=== PATIENT | female | born 1960 | race Caucasian/White ===

== ENCOUNTER → 2016-07-30 | Outpatient (CLI) | payer OTHER | LOC: FIMAGING 07:58 | PROVIDERS: ATTEND Radiology Diagnostic Radiology | DX: I87.2 Venous insufficiency (chronic) (peripheral) (principal) ==

== ENCOUNTER 2016-09-18 07:23 | Day surgery (SDC) | payer OTHER ==
[2016-09-18] MEDS ORDERED: ceFAZolin 2 GM/DEXTROSE 100 ML IV ONE (07:47)
[2016-09-18] MEDS ORDERED: ONDANSETRON 4 MG/2 ML VIAL IVP ONE (07:47)
[2016-09-18] MEDS ORDERED: NS 1,000 ML IV ONE (07:47)
[2016-09-18] MEDS ORDERED: LIDO/EPI 1% **for epidural** 30 ML SDV ONE ×2 (08:03→10:58)
[2016-09-18] MEDS ORDERED: MIDAZOLAM 2 MG/2 ML VIAL ONE ×3 (08:25→11:16)
[2016-09-18] MEDS ORDERED: fentaNYL 100 MCG/2 ML INJ ONE ×4 (08:26→10:31)
[2016-09-18] MEDS ORDERED: HYDROmorphONE/DILAUDID 2 MG/ML INJ ONE ×3 (10:35→11:28)
[2016-09-18] MEDS ORDERED: ONDANSETRON DISINTEGRATING 4 MG TAB PO PRN (12:37)
[2016-09-18] MEDS ORDERED: ONDANSETRON 4 MG/2 ML VIAL IVP PRN (12:37)
[2016-09-18] MEDS ORDERED: HYDROCODONE/APAP 5/325 TAB PO PRN (12:37)
[2016-09-18] MEDS ORDERED: IBUPROFEN 200 MG TAB PO ONE (13:00)
== END 2016-09-18 15:31 | disposition home or self-care (01) ==
LOC: FIMAGING 07:23
PROVIDERS: ATTEND Radiology Diagnostic Radiology
PROC: [UNRECOGNIZED PROCEDURE] (principal; 2016-09-18 12:05)
PROC: 06DY4ZZ Extraction of Lower Vein, Percutaneous Endoscopic Approach (ICD-10-PCS; principal; 2016-09-18 12:05)
PROC: [UNRECOGNIZED PROCEDURE] (principal; 2016-09-18 12:05)
DX: I83.891 Varicose veins of right lower extremity with other complications (principal); I87.2 Venous insufficiency (chronic) (peripheral)
CPT/HCPCS: J0690; J1170; J2250; J3010

== ENCOUNTER 2016-10-11 07:29 | Day surgery (SDC) | payer OTHER ==
[2016-10-11] MEDS ORDERED: SODIUM TETRADECYL SULFATE 60 MG/2 ML VIAL IV ONE (08:31)
[2016-10-11] MEDS ORDERED: LIDO/EPI 1% **for epidural** 30 ML SDV ONE (08:31)
[2016-10-11] MEDS ORDERED: IOPAMIDOL (ISOVUE-300) 100 ML BTL IV ONE (08:46)
[2016-10-11] MEDS ORDERED: fentaNYL 100 MCG/2 ML INJ ONE (09:02)
[2016-10-11] MEDS ORDERED: MIDAZOLAM 2 MG/2 ML VIAL ONE ×2 (09:03→10:02)
[2016-10-11] MEDS ORDERED: NITROGLYCERIN 2% 1 GM PACKET ONE (09:42)
[2016-10-11] MEDS ORDERED: HYDROmorphONE/DILAUDID 2 MG/ML INJ ONE ×2 (09:48→10:02)
[2016-10-11] MEDS ORDERED: HYDROCODONE/APAP 5/325 TAB ONE (11:29)
== END 2016-10-11 12:10 | disposition home or self-care (01) ==
LOC: FIMAGING 07:29
PROVIDERS: ATTEND Radiology Diagnostic Radiology
DX: I83.892 Varicose veins of left lower extremity with other complications (principal); I87.2 Venous insufficiency (chronic) (peripheral)
CPT/HCPCS: J1170; J2250; J3010; Q9967

== ENCOUNTER 2018-01-09 09:26 | Observation (INO) | payer OTHER ==
--- NOTE | 2018-01-09 09:48 | CPEKG ---
Heart Rate: 169 RR Interval: 355 QRSD Interval: 78 QT Interval: 268 QTC Interval: 450 QRS [place]: 20 T Wave [place]: -35 EKG Severity - ABNORMAL ECG - EKG Impression: ATRIAL FIBRILLATION WITH RAPID V-RATE EKG Impression: REPOLARIZATION ABNORMALITY, PROB RATE RELATED Electronically Signed By: Cal Estevez 09-Jan-2018 14:15:59
[2018-01-09] MEDS ORDERED: ADENOSINE 6 MG/2 ML VIAL ONE (09:56)
[2018-01-09] MEDS ORDERED: DILTIAZEM 25 MG/5 ML VIAL IVP ONE (10:02)
[2018-01-09] MEDS ORDERED: DILTIAZEM 125 MG in D5W 125 ML IV ONE (10:02)
[2018-01-09 10:11] LABS: PLATELET COUNT 316 10^3/uL (150-400)
--- NOTE | 2018-01-09 11:24 | EDPHY ---
H & P Time Seen by Provider: 01/09/18 09:44 HPI/ROS: Chief complaint. Palpitations HPI. Patient 57-year-old female presents with complaint of palpitations. She had a roll thing section yesterday and she says that they worked on her circulation and her vagal nerve. She woke up in the middle the night with palpitations that have continued. She notes increased stress. She has had palpitations before but no sustained palpitations. She has no chest pain or shortness of breath. She feels generally weak. ROS Constitutional. no fever/chills, weakness Eyes. no problems with vision ENT. no sore throat, no nasal drainage Cardiovascular. Palpitations Respiratory. no shortness of breath, no cough Abdominal. no abdominal pain, no nausea/vomiting, no diarrhea . no problems urinating MS. no calf pain/swelling, no neck/back pain, no joint pain Skin. no rash Lymph. no swollen glands Neuro. no headache, no dizziness, no difficulty walking or with speech Past Medical/Surgical History: Hypothyroid, Lyme disease Social History: Single, nonsmoker, no alcohol Smoking Status: Never smoked Physical Exam: General Appearance: Alert pleasant well-developed female moderate distress vital signs initially show heart rate 142 with blood pressure 161/107 Eyes: Pupils equal and round no pallor or injection. ENT, Mouth: Mucous membranes are moist. Respiratory: There are no retractions, lungs are clear to auscultation. Cardiovascular: Irregularly irregular rate and rhythm with tachycardia Gastrointestinal: Abdomen is soft and nontender, no masses, bowel sounds normal. Neurological: Awake and alert, sensory and motor exams grossly normal. Skin: Warm and dry, no rashes. Musculoskeletal: Neck is supple nontender. Extremities symmetrical, full range of motion. Psychiatric: Patient is oriented X 3, there is no agitation. Constitutional: Initial Vital Signs Temperature (C) 36.6 C 01/09/18 09:28 Heart Rate 142 H 01/09/18 09:28 Respiratory Rate 18 01/09/18 09:28 Blood Pressure 161/107 H 01/09/18 09:28 O2 Sat (%) 96 01/09/18 09:28 O2 Delivery Mode Room Air Allergies/Adverse Reactions: No Known Allergies Allergy (Verified 01/09/18 09:26) Home Medications: Medication Instructions Recorded Thyroid [[place] Thyroid 60 MG (*)] 120 mg PO DAILY10 09/16/16 Cmpnd T3/T4 Tab 1 each PO DAILY 01/09/18 Estradiol [Vivelle-Dot 0.05MG (*)] 0.05 mg TD SuWe@0800 01/09/18 Herbals/Supplements -Info Only 1 ea PO DAILY 01/09/18 oxyCODONE HCL/ACETAMINOPHEN 1 each PO DAILY PRN 01/09/18 [Percocet 10-325 mg Tablet] Medical Decision Making - Diagnostics EKG Interpretation: EKG interpreted by me shows rapid atrial fibrillation. Normal axis. QRS is normal there is no significant ST elevation or depression. Ventricular response is 169 Procedures: IV normal saline. Diltiazem 20 mg bolus followed by drip. ED Course/Re-evaluation: Re-evaluation at 11:15 a.m.. Heart rate 138 with blood pressure 174/99. Patient given Eliquis in the emergency department for the atrial fibrillation prevention clots We are titrating up the diltiazem drip for better rate control Patient and I discussed laboratory and EKG evaluation. We discussed treatment including recommendation admission. She expresses understanding and agreement I consulted discussed case with Dr. Mcrae, hospitalist who agrees to the admission I consulted discussed case with Cardiology who will see the patient in consultation Differential Diagnosis: New onset atrial fibrillation with rapid ventricular response. No evidence for acute MD. Rolfing session yesterday involving vagal nerve and circulation though I am not quite sure that this has related causes for her new onset atrial fibrillation. - Data Points Laboratory Results: Laboratory Results 01/09/18 09:52 01/09/18 09:52 01/09/18 01/09/18 01/09/18 09:58 09:52 09:52 WBC RBC Hgb Hct MCV MCH MCHC RDW Plt Count MPV Neut % (Auto) Lymph % (Auto) [place] % (Auto) Eos % (Auto) Baso % (Auto) Nucleat RBC Rel Count Absolute Neuts (auto) Absolute Lymphs (auto) Absolute Monos (auto) Absolute Eos (auto) Absolute Basos (auto) Absolute Nucleated RBC Immature Gran % Immature Gran # Sodium 138 mEq/L mEq/L (135-145) Potassium 4.4 mEq/L mEq/L (3.3-5.0) Chloride 105 mEq/L mEq/L (97-110) Carbon Dioxide 23 mEq/l mEq/l (22-31) Anion Gap 10 mEq/L mEq/L (8-16) BUN 16 mg/dL mg/dL (7-23) Creatinine 0.8 mg/dL mg/dL (0.6-1.0) Estimated GFR > 60 Glucose 125 mg/dL H mg/dL (70-100) Calcium 9.6 mg/dL mg/dL (8.5-10.4) Magnesium 2.0 mg/dL mg/dL (1.6-2.3) POC Troponin I 0.00 ng/mL ng/mL (0.00-0.08) NT-Pro-B Natriuret Pep 528 pg/mL H pg/mL (0-125) TSH Pending 01/09/18 09:52 WBC 8.46 10^3/uL 10^3/uL (3.80-9.50) RBC 4.92 10^6/uL 10^6/uL (4.18-5.33) Hgb 15.1 g/dL g/dL (12.6-16.3) Hct 45.0 % % (38.0-47.0) MCV 91.5 fL fL (81.5-99.8) MCH 30.7 pg pg (27.9-34.1) MCHC 33.6 g/dL g/dL (32.4-36.7) RDW 12.2 % % (11.5-15.2) Plt Count 316 10^3/uL 10^3/uL (150-400) MPV 9.5 fL fL (8.7-11.7) Neut % (Auto) 58.2 % % (39.3-74.2) Lymph % (Auto) 33.1 % % (15.0-45.0) [place] % (Auto) 7.3 % % (4.5-13.0) Eos % (Auto) 0.8 % % (0.6-7.6) Baso % (Auto) 0.5 % % (0.3-1.7) Nucleat RBC Rel Count 0.0 % % (0.0-0.2) Absolute Neuts (auto) 4.92 10^3/uL 10^3/uL (1.70-6.50) Absolute Lymphs (auto) 2.80 10^3/uL 10^3/uL (1.00-3.00) Absolute Monos (auto) 0.62 10^3/uL 10^3/uL (0.30-0.80) Absolute Eos (auto) 0.07 10^3/uL 10^3/uL (0.03-0.40) Absolute Basos (auto) 0.04 10^3/uL 10^3/uL (0.02-0.10) Absolute Nucleated RBC 0.00 10^3/uL 10^3/uL (0-0.01) Immature Gran % 0.1 % % (0.0-1.1) Immature Gran # 0.01 10^3/uL 10^3/uL (0.00-0.10) Sodium Potassium Chloride Carbon Dioxide Anion Gap BUN Creatinine Estimated GFR Glucose Calcium Magnesium POC Troponin I NT-Pro-B Natriuret Pep TSH Medications Given: Discontinued Medications Apixaban (Eliquis) 5 mg PO BID [facility] Stop: 07/08/18 11:44 Last Admin: 01/09/18 12:40 Dose: 5 mg Diltiazem HCl (Cardizem 25 Mg/5 Ml Vial) 20 mg IVP EDNOW ONE Stop: 01/09/18 10:03 Last Admin: 01/09/18 10:22 Dose: 20 mg Diltiazem HCl 125 mg/ Dextrose 125 mls @ 0 mls/hr IV EDNOW ONE; As Directed PRN Reason: Protocol Stop: 01/09/18 10:03 Last Admin: 01/09/18 10:36 Dose: 125 mls Point of Care Test Results: Chemistry 01/09/18 09:58 POC Troponin I 0.00 ng/mL ng/mL (0.00-0.08) Departure - Departure Dis[facility]: [facility] Acute Clinical Impression: Atrial fibrillation Qualifiers: Atrial fibrillation type: unspecified Qualified Code(s): I48.91 - Unspecified atrial fibrillation Condition: Fair
[2018-01-09] MEDS ORDERED: APIXABAN 5 MG TAB PO SCH (11:45)
[2018-01-09] MEDS ORDERED: ONDANSETRON 4 MG/2 ML VIAL IVP PRN (12:51)
[2018-01-09] MEDS ORDERED: ONDANSETRON DISINTEGRATING 4 MG TAB PO PRN (12:51)
[2018-01-09] MEDS ORDERED: ACETAMINOPHEN 325 MG TAB PO PRN (12:51)
[2018-01-09] MEDS ORDERED: DILTIAZEM 125 MG in D5W 125 ML IV SCH (13:00)
--- NOTE | 2018-01-09 13:04 | PDGENHP ---
History and Physical - Chief Complaint palpitations - History of Present Illness Ms Marroquin is a pleasant 57yo F with a history of hypothyroidism who presents with palpitations that woke her up from sleep around 2am this morning. These were associated with lightheadedness, dizziness and mild shortness of breath but no chest pain or syncope. She was able to fall back asleep but when she woke up again this morning her symptoms persisted which prompted her to come to the ED. Has infrequently had palpitations that lasted <5 seconds in the past but nothing sustained. She reports having soft tissue manipulation (called Rolfing) for the first time yesterday. She reports her vagal nerve was manipulated. Otherwise, she denies fevers or any other infectious symptoms. No recent medication changes and has been on same dose of thyroid replacement. In the ED, she was found to have HR in the 170s with stable BP. Her ECG demonstrated atrial fibrillation. She was given 20mg IV diltiazem, started on a diltiazem gtt and given 1 dose of apixaban prior to admission for further management. History Information - Allergies/Home Medication List Allergies/Adverse Reactions: No Known Allergies Allergy (Verified 01/09/18 09:26) Home Medications: Thyroid [[place] Thyroid 60 MG (*)] 120 mg PO DAILY10 09/16/16 [Last Taken ] Cmpnd T3/T4 Tab 1 each PO DAILY 01/09/18 [Last Taken 01/09/18] Estradiol [Vivelle-Dot 0.05MG (*)] 0.05 mg TD SuWe@0800 01/09/18 [Last Taken ] Herbals/Supplements -Info Only 1 ea PO DAILY 01/09/18 [Last Taken Unknown] oxyCODONE HCL/ACETAMINOPHEN [Percocet 10-325 mg Tablet] 1 each PO DAILY PRN [Last Taken Unknown] I have personally reviewed and updated: family history, medical history, social history, surgical history - Past Medical History Additional medical history: hypothyroidism, Lyme disease - Surgical History Additional surgical history: sclerotherapy/laser ablation of varicose veins in legs - Family History Positive for: hypertension (mother and father). Negative for: CAD Additional family history: father: mitral stenosis 2/2 rheumatic disease complicated by atrial fibrillation - Social History Smoking Status: Never smoked Alcohol Use: Occasionally Drug Use: None Review of Systems Review of Systems: ROS: 10pt was reviewed & negative except for what was stated in HPI & below Constitutional: Reports: chills, diaphoresis, fever, weight loss EENMT: Reports: blurred vision Cardiac: Reports: irregular heart rate, lightheadedness, palpitations. Denies: chest pain, edema, syncope Respiratory: Reports: shortness of breath. Denies: cough, orthopnea Gastrointestinal: Denies: vomitting, diarrhea, nausea Genitourinary: Denies: dysuria, frequency, hematuria Muscolosketal: Denies: back pain, joint pain, joint swelling Skin: Denies: lesions, rash Neurological: Denies: anxiety, headache, numbness Hematologic/Lymphatic: Denies: easy bleeding Physical Exam Physical Exam: Temp Pulse Resp BP Pulse Ox 36.6 C 126 H 20 169/131 H 95 01/09/18 09:28 01/09/18 10:54 01/09/18 10:54 01/09/18 10:54 01/09/18 10:54 Constitutional: no apparent distress, not in pain Eyes: PERRL, anicteric sclera, EOMI Ears, Nose, Mouth, Throat: moist mucous membranes, hearing normal, ears appear normal, no oral mucosal ulcers Cardiovascular: irregularly irregular, pulses symmetric bilaterally, tachycardia , No no murmur, rub, or gallop, No JVD, No edema Respiratory: no respiratory distress, no rales or rhonchi, clear to auscultation Gastrointestinal: normoactive bowel sounds, soft, non-tender abdomen, tenderness Skin: warm, no rashes or abrasions Musculoskeletal: full muscle strength, no muscle tenderness, normal joint ROM, no joint effusions Neurologic: AAOx3, sensation intact bilaterally, CN II-XII Intact, No weakness, No numbness Psychiatric: interacting appropriately, not anxious, not encephalopathic, thought process linear Lab Data & Imaging Review 01/09/18 09:52 01/09/18 09:52 WBC 8.46 10^3/uL (3.80-9.50) 01/09/18 09:52 RBC 4.92 10^6/uL (4.18-5.33) 01/09/18 09:52 Hgb 15.1 g/dL (12.6-16.3) 01/09/18 09:52 Hct 45.0 % (38.0-47.0) 01/09/18 09:52 MCV 91.5 fL (81.5-99.8) 01/09/18 09:52 MCH 30.7 pg (27.9-34.1) 01/09/18 09:52 MCHC 33.6 g/dL (32.4-36.7) 01/09/18 09:52 RDW 12.2 % (11.5-15.2) 01/09/18 09:52 Plt Count 316 10^3/uL (150-400) 01/09/18 09:52 MPV 9.5 fL (8.7-11.7) 01/09/18 09:52 Neut % (Auto) 58.2 % (39.3-74.2) 01/09/18 09:52 Lymph % (Auto) 33.1 % (15.0-45.0) 01/09/18 09:52 [place] % (Auto) 7.3 % (4.5-13.0) 01/09/18 09:52 Eos % (Auto) 0.8 % (0.6-7.6) 01/09/18 09:52 Baso % (Auto) 0.5 % (0.3-1.7) 01/09/18 09:52 Nucleat RBC Rel Count 0.0 % (0.0-0.2) 01/09/18 09:52 Absolute Neuts (auto) 4.92 10^3/uL (1.70-6.50) 01/09/18 09:52 Absolute Lymphs (auto) 2.80 10^3/uL (1.00-3.00) 01/09/18 09:52 Absolute Monos (auto) 0.62 10^3/uL (0.30-0.80) 01/09/18 09:52 Absolute Eos (auto) 0.07 10^3/uL (0.03-0.40) 01/09/18 09:52 Absolute Basos (auto) 0.04 10^3/uL (0.02-0.10) 01/09/18 09:52 Absolute Nucleated RBC 0.00 10^3/uL (0-0.01) 01/09/18 09:52 Immature Gran % 0.1 % (0.0-1.1) 01/09/18 09:52 Immature Gran # 0.01 10^3/uL (0.00-0.10) 01/09/18 09:52 Sodium 138 mEq/L (135-145) 01/09/18 09:52 Potassium 4.4 mEq/L (3.3-5.0) 01/09/18 09:52 Chloride 105 mEq/L (97-110) 01/09/18 09:52 Carbon Dioxide 23 mEq/l (22-31) 01/09/18 09:52 Anion Gap 10 mEq/L (8-16) 01/09/18 09:52 BUN 16 mg/dL (7-23) 01/09/18 09:52 Creatinine 0.8 mg/dL (0.6-1.0) 01/09/18 09:52 Estimated GFR > 60 01/09/18 09:52 Glucose 125 mg/dL (70-100) H 01/09/18 09:52 Calcium 9.6 mg/dL (8.5-10.4) 01/09/18 09:52 POC Troponin I 0.00 ng/mL (0.00-0.08) 01/09/18 09:58 Visualized and Interpreted EKG results: Yes EKG additional interpertation: atrial fibrillation with rapid ventricular response (HR 160s), no ischemic changes, no pre-excitation Assessment & Plan Plan: Ms Marroquin is a 57yo F with a history of hypothyroidism who presents with several hours of palpitations found to be in atrial fibrillation. 1. Atrial fibrillation with rapid ventricular response: New diagnosis requiring further work up. Hemodynamically stable. Cardiology has been consulted. She is euvolemic with no symptoms/signs of coronary ischemia or heart failure. - Check BNP, TSH, electrolytes - TTE - Diltiazem gtt - Start metoprolol tartrate 25mg PO BID - Started on oral anticoagulation with apixaban 5mg BID in ED, will continue - Given symptoms started <48 hours ago, will keep NPO at midnight for possible electrical cardioversion in AM however wouldn't be surprised if spontaneously converts in the mean time 2. Hypothyroidism: Does not appear overtly hypo/hyperthyroid on exam. Checking thyroid parameters and continuing home medications for now. VTE ppx: She is on therapeutic anticoagulation. Diet: regular then NPO at midnight Code status: She is full code. Disposition: She requires admission for observation for management of atrial fibrillation with RVR with possible need for cardioversion.
[2018-01-09] MEDS ORDERED: DILTIAZEM HCL/D5W 125 ML IV SCH (13:30)
[2018-01-09] MEDS: METOPROLOL TARTRATE 25 MG TAB PO SCH ×2 (14:32→21:25)
--- NOTE | 2018-01-09 14:55 | GCON ---
[f rep st] CONSULTATION CARDIOLOGY CONSULTATION. DATE OF CONSULTATION: 01/09/2018 REASON FOR CONSULTATION: We were asked by Dr. Gage to evaluate Ms. Marroquin for atrial fibrillation with rapid ventricular rates. HPI: The patient is a 57-year-old female with a history of hypothyroidism and borderline elevated blood pressures, who reports being awoken from her sleep at 2:00 a.m. with palpitations. She noted a fluttering sensation in her chest with associated lightheadedness, hypotension, and diaphoresis. She checked her pulse and her heart rate was elevated into the 150s. In regard to her recent health, she denies any symptoms of chest pain, fever, cough. She feels like she may have had other episodes of palpitations in the past but they are all very short lived, nothing similar to this. Of note, she did have a Rolfing session in which her vagal nerve was manipulated. When she awoke at 2 AM, she noted a sore throat sensation which she attributes to the manipulation. Today, she presented to the emergency department, and was found to be in atrial fibrillation with rapid ventricular rates and an elevated blood pressure. She is now admitted for rate and rhythm control. Currently, she is lying comfortably. She denies any further sore throat sensation. Home medications include [place] Thyroid compounded T3, T4, estradiol, herbal supplements, oxycodone. FAMILY HISTORY: Family history of hypertension. Father had rheumatic heart disease and atrial fibrillation due to mitral stenosis. Mother is currently in hospice for dementia. PAST MEDICAL HISTORY: Hypothyroidism, borderline high blood pressures, Bartonella. PAST SURGICAL HISTORY: Sclerotherapy and vein ablation for varicose veins. SOCIAL HISTORY: She is a nonsmoker. She reports 4 ounces of sake nightly. REVIEW OF SYSTEMS: As per HPI. A complete 10-point review of systems was obtained and is negative except for what is dictated in HPI. PHYSICAL EXAMINATION: VITAL SIGNS: BP of 169/131, heart rate of 126, respirations 20, O2 saturation 95% on room air. GENERAL: She is a very pleasant female in no apparent distress. HEENT: Normocephalic, atraumatic with no scleral icterus noted. Mucous membranes moist. HEART: Irregularly irregular. No rubs or gallops. LUNGS: Clear to auscultation. ABDOMEN: Soft with normoactive bowel sounds. SKIN: Warm and dry without edema. PSYCH: Normal mood and affect for given situation. NEURO: No focal deficits detected. : No Zamora present. LABORATORY DATA: CBC with WBC 8.46, hemoglobin 15.1, hematocrit 45, platelet count 316. BMP with sodium 138, potassium 4.4, chloride 105, CO2 23, BUN 16, creatinine 0.8, glucose 125, magnesium 2. Troponin 0. NT proBNP of 528. TSH of less than 0.015. 12-lead ECG personally interpreted demonstrates atrial fibrillation with rapid ventricular rates at 170. Telemetry reviewed and the heart rate varies between 100 and 130. I spoke with Dr. Gage regarding patient's care. IMPRESSION & PLAN: The patient is a 57-year-old female who presents with new onset atrial fibrillation. 1. Atrial fibrillation. This is a new diagnosis and requires further workup and treatment. We reviewed multiple options including proceeding to JUAN F-guided cardioversion today versus rate control that may result in spontaneous conversion. She would like to opt for the latter option. We will plan to proceed tomorrow if she does not spontaneously convert. Her echo is pending. Possible triggers for atrial fibrillation reviewed, including hyperthyroidism which may require adjustment of her thyroid medication dosing. [id number] of 2 , which typically warrants ongoing anticoagulation. This can be addressed in the outpatient as she was highly symptomatic with erh afib. 2. Hypothyroidism. As above. Consider outpatient adjustment versus decreasing in dosing prior to discharge. 3. Elevated blood pressures. She reports no formal diagnosis of hypertension. We reviewed that controlled BP would likely help prevent future bouts of AF. She may need to consider starting antihypertensive therapy in this admission. We will follow blood pressure for now. /[id number]/MODL MTDD
--- NOTE | 2018-01-09 15:04 | ECHO ---
[email or web address] [address] Main: [phone] Fax: [email or web address] Echocardiogram Name: JOHN MARTINEZ MR#: [id number] Study Date: 01/09/2018 Study Time: 01:59 PM Date of : 1960 Age: 57 year(s) Height: 172.7 cm (68 in.) Weight: 73.94 kg (163 lb.) BSA: 1.87 m2 Gender: Female Examination: Echo Indication: New onset of A-fib Image Quality: Contrast: Requested by: Silvestre Gage BP: 136 mmHg/95 mmHg Heart Rate: Rhythm: Indication: New onset of A-fib Procedure Staff Locksmith Helper: Oc Scott RDCS Reading Physician: Henrique Valle MD Requesting Provider: Conclusions: Normal size left ventricle. EF is 62 %. No regional wall motion abnormality. The rhythm is atrial fibrillation. The patient converted during the echocardiogram exam.. Trivial mitral valve regurgitation. The aortic valve is normal in appearance and function. The tricuspid valve is normal in appearance and function. No pericardial effusion. Measurements: Chambers Valvular Assessment AV/MV Valvular Assessment TV/PV Normal Normal Normal Name Value Range Name Value Range Name Value Range Ao Fawn (MM): 2.8 cm (2.2 cm-3.7 AV Vmax: 1.37 m/s (1 m/s-1.7 TR Vmax: 2.36 mm/s ( - ) cm) m/s) TR PGmax: 22 mmHg ( - ) IVSd (2D): 1.0 cm (0.6 cm-1.1 AV maxP mmHg ( - ) syst. PAP: 27 mmHg ( - ) cm) LVOT Vmax: 0.98 m/s (0.7 m/s-1.1 PV Vmax: 1.17 m/s (0.6 m/s-0.9 LVDd (2D): 4.1 cm (3.9 cm-5.3 m/s) m/s) cm) MV E Vmax: 0.98 m/s ( - ) PV PGmax: 5 mmHg ( - ) LVDs (2D): 2.7 cm (2.1 cm-4 MV A Vmax: 0.47 m/s ( - ) cm) MV E/A: 2.09 ( - ) LVPWd (2D): 1.0 cm ( - ) LVEF (2D): 62 (>=54 %) Continued Measurements: Chambers Valvular Assessment AV/MV Valvular Assessment TV/PV Name Value Name Value Name Value LADs Lon.9 cm MV E' Septal: 0.15 m/s CVP (est.): 5 mmHg Patient: JOHN MARTINEZ Study Date: 01/09/2018 Page 1 of 2 01:59 PM LA Area: 13.3 cm2 MV E/E' Septal: 6.50 MV E/E' Lateral: 5.50 Findings: Left Ventricle: Normal size left ventricle. No LV hypertrophy. Normal global systolic LV function. EF is 62 %. No regional wall motion abnormality. Normal diastolic LV function. The rhythm is atrial fibrillation. The patient converted during the echocardiogram exam.. Right Ventricle: Normal size right ventricle. Normal RV function. Left Atrium: The left atrium is normal in size. Right Atrium: The right atrium is normal in size. Mitral Valve: The mitral valve is normal in appearance and function. Trivial mitral valve regurgitation. Aortic Valve: The aortic valve is tri-leaflet. The aortic valve is normal in appearance and function. Tricuspid Valve: The tricuspid valve is normal in appearance and function. Pulmonic Valve: The pulmonic valve is normal in appearance and function. Aorta: The aorta is normal. Pericardium: No pericardial effusion. Exam Comments: The patient cardioverted during the echocardiogram. Now NSR.. (No Signature Object) Patient: JOHN MARTINEZ Study Date: 01/09/2018 Page 2 of 2 01:59 PM [id number]
[2018-01-09 16:19] LABS: INR 1.17 (0.83-1.16); PROTIME(PATIENT) 15.1 SEC (12.0-15.0)
--- NOTE | 2018-01-09 16:19 | CPEKG ---
Heart Rate: 61 RR Interval: 984 P-R Interval: 168 QRSD Interval: 80 QT Interval: 404 QTC Interval: 407 P [place]: 56 QRS [place]: 63 T Wave [place]: 79 EKG Severity - NORMAL ECG - EKG Impression: SINUS RHYTHM Electronically Signed By: Pilo Boyce 10-Jan-2018 10:20:36
[2018-01-09] MEDS: APIXABAN 5 MG TAB PO SCH (21:25)
[2018-01-10 03:53] LABS: INR 1.19 (0.83-1.16); PROTIME(PATIENT) 15.3 SEC (12.0-15.0)
[2018-01-10] MEDS ORDERED: NS 1,000 ML IV ONE (06:00)
[2018-01-10] MEDS ORDERED: ATROPINE SULFATE 1 MG/10 ML SYR IVP ONE (06:00)
[2018-01-10 08:33] VITALS: BP 154/96
[2018-01-10] MEDS: METOPROLOL TARTRATE 25 MG TAB PO SCH (08:33)
[2018-01-10] MEDS ORDERED: [UNRECOGNIZED DRUG - MIXTURE] PO SCH (09:00)
[2018-01-10] MEDS ORDERED: ASPIRIN EC 81 MG TAB PO SCH (09:45)
[2018-01-10] MEDS ORDERED: LISINOPRIL 10 MG TAB PO SCH (09:45)
--- NOTE | 2018-01-10 09:54 | PDCARPN ---
Cardiology Progress Note Chief Complaint: PAF Assessment/Plan: Assessment: 57F PMH borderline htn, hypoT, admitted with palps and found to be in AF RVR. Spontaneous conversion yesterday. #. PAF: [id number] of 2 which typically warrants full AC pt was highly symptomatic with AF and so will defer AC and start ASA therapy pt counseled on BP and lifestyle modifications (stress reduction) #. htn: BP remains elevated start Lisinopril BMP in 1 week and clinical follow up #. hypoT: TSH undetectable which may be playing a role in AF will have IM address 15 minutes wiht 50% spent on counseling 01/10/18 09:51 Subjective: Feels well and feels better when BP was lower. No cp or palps. Reviewed/Discussed With: hospitalist (Dr. Gage) Objective: Vital Signs (8 Hrs) Temp Pulse Resp BP Pulse Ox 01/10/18 08:33 72 154/96 H 01/10/18 08:00 97.9 F 65 14 154/96 H 94 01/10/18 03:51 98.1 F 65 16 151/92 H 95 Intake/Output (24 Hrs) 01/09/18 01/10/18 01/11/18 05:59 05:59 05:59 Intake Total 400 Balance 400 Intake: Oral (ml) 400 Other: Weight 79.8 kg Intake Quantity Yes Sufficient Number of Voids Toilet 2 Result Diagrams: 01/09/18 09:52 01/10/18 03:33 EKG: personally interpreted NSR Telemetry: SR overnight short run of PAT Echocardiogram: EF wnl and no VHD - Physical Exam Constitutional: healthy appearing, no apparent distress Eyes: anicteric sclera Ears, Nose, Mouth, Throat: moist mucous membranes Respiratory: clear to auscultate bilat, no crackles Gastrointestinal: normoactive bowel sounds Skin: no edema Neurologic: AAOx3 Psychiatric: cooperative, interactive ICD10 Worksheet Patient Problems: Problems Problem Status Onset Atrial fibrillation Acute
[2018-01-10] MEDS ORDERED: THYROID 60 MG TAB PO SCH (10:00)
--- NOTE | 2018-01-10 10:21 | ASDISCHSUM ---
Discharge Information Plan Status:Home with No Needs Medically Cleared to Leave:01/10/2018 Discharge Date:01/10/2018 CM D/C Disposition:Home, Routine, Self-Care ADT D/C Disposition:Home, Routine, Self-Care Projected Discharge Date:01/10/2018 Transportation at D/C: Discharge Delay Reason: Follow-Up Date:01/10/2018 Discharge Slot: Final Diagnosis: Placement Information Patient Contact Information Contact Name:INOCENCIO Relationship: Address:[address] [place] [address] Work Phone: City:[facility] Phone: State/Zip Code:[place] [address] Email: Financial Information Financial Class:HMO and PPO Plans Primary Plan Desc:[facility] Primary Plan Number:[id number] Secondary Plan Desc: Secondary Plan Number: Assessment Information Intervention Information Intervention Type:*Incorrect Registration Date of Service:01/09/2018 06:25 PM Patient Type:Observation Staff Member:ZOË Burciaga Patricia Hours: Discipline: Severity: Comment:
--- NOTE | 2018-01-10 10:29 | ASMTLACE ---
LACE Length of stay for Answers: Less than 1 day current admission Acuity / Level of Answers: No Care: Did the patient have an inpatient admission? Comorbidities - select Answers: Other Notes: afib, HTN all that apply # of Emergency department Answers: 1-2 visits in the last 6 months Score: 2 Date Signed: 01/10/2018 10:28 AM Electronically Signed By:Fabiola Barber RN
--- NOTE | 2018-01-10 10:33 | ASMTCMCOM ---
CM Note CM Note Notes: Chart reviewed. Patient is a 57 year old female admitted via ED for rapid afib that converted spontaneously. She has been medically cleared for discharge, no needs identified. CM available should needs arise. Plan: Home independently Date Signed: 01/10/2018 10:32 AM Electronically Signed By:Fabiola Barber RN
[2018-01-10] MEDS: APIXABAN 5 MG TAB PO SCH (11:29)
--- NOTE | 2018-01-10 20:07 | PDDCSUM ---
Discharge Summary Discharge Summary: Date of Admission: 01/09/2018 Date of Discharge: 01/10/2018 Consultations: cardiology Procedures/Studies: TTE Hospital Course by Diagnosis: 1. Atrial fibrillation with RVR: New diagnosis. Suspect precipitated by hyperthyroidism and HTN. Spontaneously converted while inpatient. Discharged on metoprolol 50mg BID and aspirin 81mg daily ([id number]). Patient to f/u with cardiology to discuss 30 day event monitor and long-term anticoagulation. 2. Hypothyroidism: Suspect taking too much thyroid replacement as undetectable TSH with normal free T4. She has been taking unknown amounts of T3/T4 compound as well as 120mcg armour thyroid. We started her on weight-based levothyroxine at 88mcg/day and discontinued her other meds. She should follow up with her PCP and get TSH checked in 4-6 weeks. 3. Hypertension: New diagnosis for patient. Started on metoprolol and lisinopril. Items for Follow Up: 1. Follow up with cardiology for management of afib 2. Check TSH in 4-6 weeks and adjust levothyroxine accordingly 3. Titrate anti-hypertensives as needed Pending Items at Discharge: None Medications at Discharge: metoprolol tartrate 25mg BID, lisinopril 10mg daily, levothyroxine 88mcg daily, aspirin 81mg daily
== END 2018-01-10 12:16 | disposition home or self-care (01) ==
LOC: INTOOBSV 11:43 → F2W 13:20
PROVIDERS: ADMIT Hospitalist; ATTEND Hospitalist
DX: I48.91 Unspecified atrial fibrillation (principal); E03.9 Hypothyroidism, unspecified; I10 Essential (primary) hypertension
CPT/HCPCS: 93005; 93306; 96365; 96366; 96375; 99285; G0378; 84484-PO; J0153

== ENCOUNTER 2018-09-29 12:08 | Observation (INO) | payer SELFPAY ==
[2018-09-29] MEDS ORDERED: NS 1,000 ML IV ONE (12:30)
--- NOTE | 2018-09-29 12:30 | EDPHY ---
H & P Stated Complaint: tachycardia hx afib Time Seen by Provider: 09/29/18 12:30 HPI/ROS: HPI CHIEF COMPLAINT: AFib with RVR. HISTORY OF PRESENT ILLNESS: This patient is a 58-year-old female, she has a history of hypertension, and AFib remotely, she presents emergency room with AFib with RVR. She states around 6:00 a.m. She woke up with her heart racing. Denies any chest pain or chest pressure. Complains of fast heart rate. States heart rate is running in the 160s to 170s. Denies any chest pain. Denies shortness of breath. Does complain of lightheadedness. Past Medical History: Hypertension AFib. Past Surgical History: No recent surgical history Social History: Denies drugs alcohol tobacco. Family History: Noncontributory ROS REVIEW OF SYSTEMS: 10 Systems were reviewed and negative with the exception of the elements mentioned in the history of present illness. Exam Constitutional triage nursing summary reviewed, vital signs reviewed, awake/ alert. Eyes normal conjunctivae and sclera, EOMI, PERRLA. HENT normal inspection, atraumatic, moist mucus membranes, no epistaxis, neck supple/ no meningismus, no raccoon eyes. Respiratory clear to auscultation bilaterally, normal breath sounds, no respiratory distress, no wheezing. Cardiovascular rate normal, regular rhythm, no murmur, no edema, distal pulses normal. Gastrointestinal soft, non-tender, no rebound, no guarding, normal bowel sounds, no distension, no pulsatile mass. Genitourinary no CVA tenderness. Musculoskeletal no midline vertebral tenderness, full range of motion, no calf swelling, no tenderness of extremities, no meningismus, good pulses, neurovascularly intact. Skin pink, warm, & dry, no rash, skin atraumatic. Neurologic awake, alert and oriented x 3, AAOx3, moves all 4 extremities equally, motor intact, sensory intact, CN II-XII intact, normal cerebellar, normal vision, normal speech. Psychiatric normal mood/affect. Heme/Lymph/Immune no lymphadenopathy. Differential Diagnosis: Includes but is not limited to in a particular order AFib with RVR, electrolyte disturbance, dehydration, acute coronary syndrome SVT , AVRNT Medical Decision Making: Plan for this patient IV establishment, IV fluid bolus , IV diltiazem bolus, Dilt drip, basic electrolytes, Re-evaluation: EKG interpretation by me on record in [facility] system. Impression time of EKG 1225, AFib rate of 156. No acute ST elevation. Subtle ST depression inferior leads. 1402: Patient continues to have AFib with RVR in the 120s. She is on a Dilt drip. We may need to increase is currently she is at 10. She is resting comfortably without any chest pain or shortness of breath. Chest x-ray unremarkable the initial chest x-ray had a shadow consistent with a nipple. Nipple markers were placed and repeat x-ray was obtain. Patient continues to be in AFib should be admitted for AFib with RVR. Spoke with the hospitalist service and they agree to admit Dr. Park. Patient agrees for admission Source: Patient - Personal History Current Tetanus Diphtheria and Acellular Pertussis (TDAP): Yes - Medical/Surgical History Hx Asthma: No Hx Chronic Respiratory Disease: No Hx Diabetes: No Hx Cardiac Disease: Yes Hx Renal Disease: No Hx Cirrhosis: No Hx Alcoholism: No Hx HIV/AIDS: No Hx Splenectomy or Spleen Trauma: No Other PMH: Lyme disease, bartonella thyroid and elmer's thyroid. afib/htn - Social History Smoking Status: Never smoked Constitutional: Initial Vital Signs Temperature (C) 36.5 C 09/29/18 12:14 Heart Rate 168 H 09/29/18 12:14 Respiratory Rate 20 09/29/18 12:14 Blood Pressure 130/107 H 09/29/18 12:14 O2 Sat (%) 95 09/29/18 12:14 O2 Delivery Mode Room Air Allergies/Adverse Reactions: No Known Allergies Allergy (Verified 09/29/18 12:13) Home Medications: Medication Instructions Recorded Carboxymethylcellulose 1% [Refresh 1 drop EACHEYE DAILY PRN 09/29/18 Celluvisc (*)] Ibuprofen [Motrin (*)] 200 mg PO DAILY PRN 09/29/18 Thyroid,Pork [Electronic Organ Technician Thyroid] 120 mg PO DAILY 09/29/18 Apixaban [Eliquis] 5 mg PO BID #60 tab 09/30/18 Diltiazem Cd [Cardizem ER 120 MG 120 mg PO DAILY #30 cap 09/30/18 (*)] Medical Decision Making - Data Points Laboratory Results: Laboratory Results 09/29/18 12:33 09/29/18 12:33 Medications Given: Discontinued Medications Apixaban (Eliquis) 5 mg PO BID [facility] Stop: 03/28/19 14:59 Last Admin: 09/30/18 08:35 Dose: 5 mg Diltiazem HCl (Cardizem 25 Mg/5 Ml Vial) 15 mg IVP EDNOW ONE Stop: 09/29/18 12:37 Last Admin: 09/29/18 12:44 Dose: 15 mg Diltiazem HCl (Cardizem Er Q24hr) 120 mg PO DAILY [facility] Stop: 03/29/19 08:59 Last Admin: 09/30/18 08:35 Dose: 120 mg Sodium Chloride (Ns) 1,000 mls @ 0 mls/hr IV EDNOW ONE; Wide Open PRN Reason: Protocol Stop: 09/29/18 12:31 Last Admin: 09/29/18 12:36 Dose: 1,000 mls Diltiazem/Dextrose (Diltiazem 125mg/125ml (Premix)) 125 mls @ 0 mls/hr IV EDNOW ONE; As Directed PRN Reason: Protocol Stop: 09/29/18 12:37 Last Admin: 09/29/18 12:51 Dose: 125 mls Point of Care Test Results: Chemistry 09/29/18 12:35 POC Troponin I 0.03 ng/mL ng/mL (0.00-0.08) Departure - Departure Disposition: [facility] Inpatient Acute Clinical Impression: Atrial fibrillation, Atrial fibrillation with RVR Condition: Good
[2018-09-29] MEDS ORDERED: DILTIAZEM HCL/D5W 125 ML IV ONE (12:36)
[2018-09-29] MEDS ORDERED: DILTIAZEM 25 MG/5 ML VIAL IVP ONE (12:36)
[2018-09-29 12:44] LABS: PLATELET COUNT 335 10^3/uL (150-400)
[2018-09-29 12:59] LABS: INR 0.93 (0.83-1.16); PROTIME(PATIENT) 12.1 SEC (12.0-15.0)
[2018-09-29] MEDS ORDERED: ACETAMINOPHEN 325 MG TAB PO PRN (14:54)
[2018-09-29] MEDS ORDERED: ONDANSETRON 4 MG/2 ML VIAL IVP PRN (14:54)
[2018-09-29] MEDS ORDERED: ONDANSETRON DISINTEGRATING 4 MG TAB PO PRN (14:54)
[2018-09-29] MEDS ORDERED: CARBOXYMETHYLCELLULOSE 1% 0.4 ML DROPERETTE EACHEYE PRN (14:55)
--- NOTE | 2018-09-29 14:59 | PDGENHP ---
History and Physical - Chief Complaint dizzy, palpitations - History of Present Illness 58 yo female with h/o hypothyroidism, hypertension and previous episode of a fib with rvr presents to ED reporting dizziness and heart palpitations. She reports construction on her house and yesterday when they laid stucco, she felt she had a reaction to this and felt her heart flutter a bit. This resolved. She awoke feeling fine, but today she began to notice heart palpitations with an irregular heart beat and dizziness. She denies CP or SOB. No peripheral edema. She came to the ED where she was found to be in A fib with RVR. She received IV Diltiazem bolus followed by a drip. She is admitted for further management. History Information - Allergies/Home Medication List Allergies/Adverse Reactions: No Known Allergies Allergy (Verified 09/29/18 12:13) Home Medications: Carboxymethylcellulose 1% [Refresh Celluvisc (*)] 1 drop EACHEYE DAILY PRN 09/29 [Last Taken Unknown] Hydrochlorothiazide [HCTZ (*)] 12.5 mg PO DAILY 09/29/18 [Last Taken 09/29/18] Ibuprofen [Motrin (*)] 200 mg PO DAILY PRN 09/29/18 [Last Taken Unknown] Lisinopril [Zestril 5 mg (*)] 5 mg PO DAILY 09/29/18 [Last Taken 09/28/18] Thyroid,Pork [Conservation Agent Thyroid 120] 120 mg PO DAILY 09/29/18 [Last Taken 09/28/18] I have personally reviewed and updated: family history, medical history, social history, surgical history - Past Medical History atrial fibrillation, hypertension Additional medical history: hypothyroidism, Lyme disease - Surgical History Additional surgical history: sclerotherapy/laser ablation of varicose veins in legs - Family History Positive for: hypertension (mother and father). Negative for: CAD Additional family history: father: mitral stenosis 2/2 rheumatic disease complicated by atrial fibrillation - Social History Smoking Status: Never smoked Alcohol Use: Occasionally Drug Use: None Additional social history: , at bedside. She works in medical nutrition field. Review of Systems Review of Systems: ROS: 10pt was reviewed & negative except for what was stated in HPI & below Physical Exam Physical Exam: Temp Pulse Resp BP Pulse Ox 36.5 C 125 H 18 134/99 H 96 09/29/18 12:14 09/29/18 14:10 09/29/18 14:10 09/29/18 14:10 09/29/18 14:10 Constitutional: no apparent distress Eyes: PERRL Ears, Nose, Mouth, Throat: moist mucous membranes Cardiovascular: irregularly irregular, tachycardia Respiratory: no respiratory distress, clear to auscultation Gastrointestinal: normoactive bowel sounds, soft, non-tender abdomen Skin: warm Musculoskeletal: full muscle strength Neurologic: AAOx3 Psychiatric: interacting appropriately Lab Data & Imaging Review 09/29/18 12:33 09/29/18 12:33 WBC 10.35 10^3/uL (3.80-9.50) H 09/29/18 12:33 RBC 4.67 10^6/uL (4.18-5.33) 09/29/18 12:33 Hgb 15.2 g/dL (12.6-16.3) 09/29/18 12:33 Hct 44.9 % (38.0-47.0) 09/29/18 12:33 MCV 96.1 fL (81.5-99.8) 09/29/18 12:33 MCH 32.5 pg (27.9-34.1) 09/29/18 12:33 MCHC 33.9 g/dL (32.4-36.7) 09/29/18 12:33 RDW 12.2 % (11.5-15.2) 09/29/18 12:33 Plt Count 335 10^3/uL (150-400) 09/29/18 12:33 MPV 9.3 fL (8.7-11.7) 09/29/18 12:33 Neut % (Auto) 68.6 % (39.3-74.2) 09/29/18 12:33 Lymph % (Auto) 24.3 % (15.0-45.0) 09/29/18 12:33 Carlton % (Auto) 5.4 % (4.5-13.0) 09/29/18 12:33 Eos % (Auto) 0.7 % (0.6-7.6) 09/29/18 12:33 Baso % (Auto) 0.7 % (0.3-1.7) 09/29/18 12:33 Nucleat RBC Rel Count 0.0 % (0.0-0.2) 09/29/18 12:33 Absolute Neuts (auto) 7.10 10^3/uL (1.70-6.50) H 09/29/18 12:33 Absolute Lymphs (auto) 2.52 10^3/uL (1.00-3.00) 09/29/18 12:33 Absolute Monos (auto) 0.56 10^3/uL (0.30-0.80) 09/29/18 12:33 Absolute Eos (auto) 0.07 10^3/uL (0.03-0.40) 09/29/18 12:33 Absolute Basos (auto) 0.07 10^3/uL (0.02-0.10) 09/29/18 12:33 Absolute Nucleated RBC 0.00 10^3/uL (0-0.01) 09/29/18 12:33 Immature Gran % 0.3 % (0.0-1.1) 09/29/18 12:33 Immature Gran # 0.03 10^3/uL (0.00-0.10) 09/29/18 12:33 PT 12.1 SEC (12.0-15.0) 09/29/18 12:33 INR 0.93 (0.83-1.16) 09/29/18 12:33 APTT 28.4 SEC (23.0-38.0) 09/29/18 12:33 Sodium 133 mEq/L (135-145) L 09/29/18 12:33 Potassium 4.4 mEq/L (3.5-5.2) 09/29/18 12:33 Chloride 102 mEq/L (97-110) 09/29/18 12:33 Carbon Dioxide 21 mEq/l (22-31) L 09/29/18 12:33 Anion Gap 10 mEq/L (6-14) 09/29/18 12:33 BUN 16 mg/dL (7-23) 09/29/18 12:33 Creatinine 0.7 mg/dL (0.6-1.0) 09/29/18 12:33 Estimated GFR > 60 09/29/18 12:33 Glucose 111 mg/dL (70-100) H 09/29/18 12:33 Calcium 9.3 mg/dL (8.5-10.4) 09/29/18 12:33 Magnesium 1.9 mg/dL (1.6-2.3) 09/29/18 12:33 Total Bilirubin 0.6 mg/dL (0.1-1.4) 09/29/18 12:33 Conjugated Bilirubin 0.3 mg/dL (0.0-0.5) 09/29/18 12:33 Unconjugated Bilirubin 0.3 mg/dL (0.0-1.1) 09/29/18 12:33 AST 27 IU/L (14-46) 09/29/18 12:33 ALT 44 IU/L (9-52) 09/29/18 12:33 Alkaline Phosphatase 98 IU/L (38-126) 09/29/18 12:33 POC Troponin I 0.03 ng/mL (0.00-0.08) 09/29/18 12:35 NT-Pro-B Natriuret Pep 473 pg/mL (0-125) H 09/29/18 12:33 Total Protein 7.5 g/dL (6.3-8.2) 09/29/18 12:33 Albumin 4.4 g/dL (3.5-5.0) 09/29/18 12:33 Visualized and Interpreted Chest x-ray results: Yes Chest X-Ray results: no infiltrate Visualized and Interpreted EKG results: Yes EKG Interpretation: Positive for: other (A fib rvr) Assessment & Plan Assessment: Atrial fibrillation with RVR - s/p IV Diltiazem bolus and 1 L NS bolus. Chads- vasc 2 for gender and htn. This is her 2nd episode in last year. Previously, she converted during an echo and did not discharge on anticoagulation at that time, noting borderline htn. She is now treated for hypertension with lisinopril and hctz. -admit to PCU for telemetry monitoring -cont diltiazem drip -check TSH -PARQ for anticoagulation done, pt agrees to start Eliquis 5 mg bid -will keep NPO at midnight, if she doesn't convert will have cardiology consult for possible cardioversion Hypertension - cont HCTZ. Will hold Lisinopril while on Dilt drip and likely replace this with oral Diltiazem at discharge. Hypothyroidism - check TSH, cont current dose of levothyroxine, adjust dose if indicated, pending TSH Full code Dispo - obs
[2018-09-29] MEDS ORDERED: DILTIAZEM HCL/D5W 125 ML IV SCH (15:00)
[2018-09-29] MEDS: APIXABAN 5 MG TAB PO SCH ×2 (15:45→22:43)
--- NOTE | 2018-09-29 15:46 | CPEKG ---
Test Reason : OPEN Blood Pressure : / mmHG Vent. Rate : 156 BPM Atrial Rate : 167 BPM P-R Int : 096 ms QRS Dur : 093 ms QT Int : 292 ms P-R-T Axes : 000 -26 055 degrees QTc Int : 471 ms Atrial fibrillation Borderline left axis deviation ST depression, probably rate related Confirmed by Cal Estevez ([id number]) on 09/29/2018 3:45:56 PM Referred By: PHYSICIAN ED Confirmed By:Cal Estevez
[2018-09-30 07:06] VITALS: BP 114/72
[2018-09-30] MEDS: APIXABAN 5 MG TAB PO SCH (08:35)
[2018-09-30] MEDS ORDERED: HYDROCHLOROTHIAZIDE 12.5 MG CAP PO SCH (09:00)
[2018-09-30] MEDS ORDERED: DILTIAZEM CD 120 MG CAP PO SCH (09:00)
[2018-09-30] MEDS ORDERED: THYROID 60 MG TAB PO SCH (10:00)
--- NOTE | 2018-09-30 14:05 | GDS ---
[f rep st] DISCHARGE SUMMARY DISCHARGE DIAGNOSES: 1. Atrial fibrillation with rapid ventricular response, status post spontaneous conversion to normal sinus rhythm. 2. Hypertension. 3. Hypothyroidism. HISTORY OF PRESENT ILLNESS: For details, please see history and physical dated September 29, 2018. In [facility], the patient is a 58-year-old female with 1 previous episode of atrial fibrillation 9 months deshawn or to admission who presented to the emergency department with dizziness and palpitations. She was f ound to be in atrial fibrillation with rapid ventricular response and was admitted to the hospital fo r further management. HOSPITAL COURSE: Patient was admitted to the cardiac telemetry unit. She received IV diltiazem bolu s, followed by an IV diltiazem drip. Later in the evening of admission, she converted back to normal sinus rhythm and maintained normal sinus rhythm overnight on telemetry. Her TSH was normal. A prev ious echocardiogram performed within the last year was reviewed and revealed no evidence of valve dis ease. She had a CHADS-VASc score of 2 for gender and hypertension, and I recommended she start antic oagulation with Eliquis. She was agreeable to this. On the morning of discharge, she was transition ed to oral diltiazem CD 120 mg p.o. daily. This will take the place of her previous low-dose lisinop ril/HCTZ. I recommend she follow up with [facility] for further management of her paroxysm al atrial fibrillation. DISPOSITION: Patient is discharged home in stable condition. FOLLOWUP: 1. Audrey Turner, physician doctor assistant [facility]. 2. Dr. Michael Yeh, primary care. DISCHARGE MEDICATIONS: Please see [facility] for completed updated medication list. New medications o n discharge, include diltiazem CD 120 mg p.o. daily #30, no refills, Eliquis 5 mg p.o. twice daily #6 0 no refills. She will continue with all other outpatient medications as previously prescribed inclu ding pork thyroid 120 mg p.o. daily, ibuprofen 200 mg p.o. daily. Discontinued medications: HCTZ and lisinopril are discontinued in favor of diltiazem for prevention of recurrent atrial fibrillation. /[id number]/MODL
== END 2018-09-30 10:00 | disposition home or self-care (01) ==
LOC: F2W 15:23
PROVIDERS: ADMIT Hospitalist; ATTEND Hospitalist
PROC: 5A2204Z Restoration of Cardiac Rhythm, Single (ICD-10-PCS; principal; 2018-09-29)
DX: I48.0 Paroxysmal atrial fibrillation (principal); I10 Essential (primary) hypertension; E03.9 Hypothyroidism, unspecified
CPT/HCPCS: 84484-ER; 96374; G0378